=== PATIENT | male | born 1970 | race Caucasian/White ===

== ENCOUNTER → 2018-07-27 | Outpatient (CLI) | payer BC ==
--- NOTE | 2018-07-27 13:34 | 2DMMODE ---
[place] [address] 2 D/M-MODE ECHOCARDIOGRAM Name: MATT GUERRIER Room: [facility]#: [id number] Admission: 07/27/18 Attend Phys: Shefali Thorne, Discharge: Date of : 70 Date of Service: 07/27/18 1334 Report #: [id number] THIS REPORT FOR: //name// APPROVED REPORT Study performed: 07/27/2018 08:22:36 EXAM: Comprehensive 2D, Doppler, and color-flow Echocardiogram Patient Location: Out-Patient Status: routine BSA: 2.84 HR: 66 bpm BP: 180/90 mmHg Other Information Study Quality: Fair Indications Chest Pain Hypertension/HDD 2D Dimensions IVSd: 15.81 (7-11mm) LVOT Diam: 21.50 (18-24mm) LVDd: 55.11 mm PWd: 13.94 (7-11mm) Ascending Ao: 30.42 (22-36mm) LVDs: 33.40 (25-40mm) Aortic Root: 30.82 mm Volumes Left Atrial Volume (Systole) LA ESV Index: 20.20 mL/m2 Aortic Valve AoV Peak Terry.: 1.80 m/s AO Peak Gr.: 13.00 mmHg LVOT Max P.87 mmHg AO Mean Gr.: 7.01 mmHg LVOT Mean P.49 mmHg LVOT Max V: 0.85 m/s AO V2 VTI: 39.84 cm LVOT Mean V: 0.56 m/s EDWARD (VTI): 1.78 cm2 LVOT V1 VTI: 19.52 cm Mitral Valve E/A Ratio: 1.40 MV Decel. Time: 200.98 ms MV E Max Terry.: 1.05 m/[place] [address] 2 D/M-MODE ECHOCARDIOGRAM Name: MATT GUERRIER Room: [facility]#: [id number] Admission: 07/27/18 Attend Phys: Shefali Thorne, Discharge: Date of : 70 Date of Service: 07/27/18 1334 Report #: [id number] MV PHT: 58.28 ms MVA (PHT): 3.77 cm2 TDI E/Lateral E': 11.67 E/Medial E': 11.67 Medial E' Terry.: 0.09 m/s Lateral E' Terry.: 0.09 m/s Pulmonary Valve PV Peak Terry.: 1.18 m/s PV Peak Gr.: 5.54 mmHg Tricuspid Valve RAP Estimate: 5.00 mmHg TR Peak Gr.: 25.36 mmHg RVSP: 30.36 mmHg PA Pressure: 30.36 mmHg Left Ventricle The left ventricle is normal size. There is normal LV segmental wall motion. Mild to moderate concentric left ventricular hypertrophy. Left ventricular systolic function is normal. LVEF is 55-60%. Transmitral Doppler flow pattern suggests impaired LV relaxation. Right Ventricle The right ventricle is normal size. The right ventricular systolic function is normal. Atria The left atrium size is normal. The right atrium size is normal. Aortic Valve The aortic valve is normal in structure. No aortic regurgitation is present. There is no aortic valvular stenosis. Mitral Valve The mitral valve is normal in structure. There is no mitral valve regurgitation noted. No evidence of mitral valve stenosis. Tricuspid Valve The tricuspid valve is normal in structure. Mild tricuspid regurgitation. Pulmonic Valve The pulmonary valve is normal in structure. There is no pulmonic [place] [address] 2 D/M-MODE ECHOCARDIOGRAM Name: MATT GUERRIER Room: [facility]#: [id number] Admission: 07/27/18 Attend Phys: Shefali Thorne, Discharge: Date of : 70 Date of Service: 07/27/18 1334 Report #: [id number] Great Vessels The aortic root is normal in size. IVC is normal in size and collapses >50% with inspiration. Pericardium There is no pericardial effusion. <Conclusion> The left ventricle is normal size. Mild to moderate concentric left ventricular hypertrophy. Left ventricular systolic function is normal. LVEF is 55-60%. Transmitral Doppler flow pattern suggests impaired LV relaxation. Mild tricuspid regurgitation. IVC is normal in size and collapses >50% with inspiration. <ELECTRONICALLY SIGNED> By: Gatito Fonseca MD, FACC 07/27/18 1334 1334 1334 Gatito Fonseca MD, FACC /INF
== END ==
LOC: M.CRD 08:00
DX: I07.1 Rheumatic tricuspid insufficiency (principal); I10 Essential (primary) hypertension

== ENCOUNTER → 2019-04-08 | Outpatient (CLI) | payer OTHER | LOC: M.CT 07:42 | DX: Z13.6 Encounter for screening for cardiovascular disorders (principal) ==